=== PATIENT | female | born 1935 | race Caucasian/White ===

== ENCOUNTER 2019-06-10 16:24 | Inpatient (IN) | payer OTHER ==
[~2019-06-10] VITALS: Ht 170.2 cm; Wt 87.7 kg
[~2019-06-10 16:24] MED LIST: ADVAIR 250-501 EACH IH; ALBUTEROL2.5 MG/31 INH; ASA81BEC; ASPIR 8181 MG PO; AZITHROMYCIN 2250 MG; B COMPLEX-VITA1 EACH PO; BINOSTO70 MG PO; BUFFERIN 81 MG81 MG; CALCIUM 600 +1 EAC1 PO; EYE ITCH RELIEF5 ML OP; GLUCOSAMINE-CH900 MG PO; LEVAQUIN 750 M750 MG PO; MELATONIN1 MG; NAPROSYN500 MG PO; NEURONTIN 300300 M1 PO; OMACOR1 G1 PO; PREDNISONE 10 M10 MG PO; PREDNISONE 20 M20 M1 PO; PROAIR HFA8.5 GM IH; PROAIR HFA8.5 GM INH; PROMETHAZINE-C120 ML PO; RESTASIS1 EACH OPHTHALMIC; SYNTHROID100 MCG PO; TESSALON200 MG PO; TRAMADOL 50 MG50 MG PO; ZOCOR40 MG PO
[2019-06-10 16:34] VITALS: BP 176/104
[2019-06-10] MEDS ORDERED: ADVAIR 100-501 EACH INH (16:39)
[2019-06-10 18:58] VITALS: BP 171/105
[2019-06-10 19:18] LABS: ABSOLUTE EOSINOPHILS 0.4 thou/uL (0.0-0.7); ABSOLUTE LYMPHOCYTES 2.4 thou/uL (0.8-5.3); ABSOLUTE MONOCYTES 0.7 thou/uL (0.0-1.2); ABSOLUTE NEUTROPHILS 5.7 thou/uL (1.6-8.1); BASOPHILS 0.4 %; HEMATOCRIT 41.8 % (37.0-47.0); HEMOGLOBIN 13.9 gm/dL (12.0-15.0); LYMPHOCYTES 26.1 %; MCH 27.8 pg (26.0-34.0); MCHC 33.1 g/dL (28.0-37.0); MCV 83.8 fL (80.0-100.0); MONOCYTES 7.4 %; MPV 9.1 fl. (7.2-11.1); NUCLEATED RBCS 0 /100WBC; PLATELET COUNT* 267 thou/uL (150-400); POLYS 62.1 %; RBC 4.99 mil/uL (4.20-5.00); RDW-CV 15.1 % (10.5-14.5); WBC 9.1 thou/uL (4.0-11.0)
[2019-06-10 19:31] LABS: CALCIUM 9.6 mg/dL (8.5-10.1); CREATININE 0.7 mg/dL (0.6-1.3); POTASSIUM 4.4 mmol/L (3.5-5.1)
[2019-06-10 19:44] LABS: ALBUMIN 4.1 g/dL (3.4-5.0); TOTAL PROTEIN 7.1 g/dL (6.4-8.2)
[2019-06-10 21:09] LABS: INFLUENZA A ANTIGEN Negative (Negative); INFLUENZA B ANTIGEN Negative (Negative)
[2019-06-10 21:27] LABS: URINE BILIRUBIN NEGATIVE (Negative); URINE BLOOD NEGATIVE (Negative); URINE CLARITY CLEAR; URINE COLOR YELLOW; URINE GLUCOSE-RANDOM NEGATIVE (Negative); URINE KETONES NEGATIVE (Negative); URINE LEUKOCYTES-REFLEX 1+ (Negative); URINE NITRITE-REFLEX NEGATIVE (Negative); URINE PROTEIN NEGATIVE (Negative); URINE UROBILINOGEN 0.2 E.U./dl (0.2-1.0)
[2019-06-10 21:38] LABS: BACTERIA-REFLEX None Seen /HPF (None Seen); CASTS None Seen /LPF (None Seen); CRYSTALS None Seen /LPF (None Seen); SQUAMOUS 0-3 Few /LPF (0-3); URINE RBC None Seen /HPF (0-2); URINE WBC-REFLEX None Seen /HPF (0-5)
[2019-06-10 22:00] VITALS: BP 134/76
--- NOTE | 2019-06-10 23:30 | NUR ---
RECEIVED REPORT AND ASSUMED CARE OF PT, ASSESSMENT COMPLETED. PT REMAINS BOARDING IN ER. C/O SHOOK. REASSURANCE AND DARK ROOM. TELEMETRY ON SHOWING SR. SEE ADMISSION ASSESSMENT AND HX. WILL CONT TO MONITOR AND ASSIST NEEDED.
[2019-06-11] VITALS: BP 144/82
[2019-06-11 04:00] VITALS: BP 133/68
--- NOTE | 2019-06-11 05:14 | NUR ---
AWAKE MOST OF NIGHT STATING SHE JUST CAN'T SLEEP. WHEN DOZING PT DESATS, O2 APPLIED AT 2L/NC. BP IMPROVED. CONT TO BOARD IN ER. HOURLY ROUNDING OBSERVED.
[2019-06-11 07:52] VITALS: BP 129/73
--- NOTE | 2019-06-11 10:10 | NUR ---
PHYSICIAN PAGED PER PT REQUEST FOR CHANGE IN DIET ORDER OF NPO AT [facility].
[2019-06-11 10:52] VITALS: BP 152/70
--- NOTE | 2019-06-11 11:50 | NUR ---
RN CALLED INTO ROOM R/T PT REQUESTING FOR UPDATE ON P.O.C. PHYSICIAN PAGED OVERHEAD FOR UPDATE ON P.O.C FOR PT.
--- NOTE | 2019-06-11 13:12 | NUR ---
SPOKE WITH DR. REYNOSO VIA PHONE R/T PT NOT WANTING MRI AND WANTING TO LEAVE. DR. REYNOSO OKAY WITH PT LEAVING AGAINST MEDICAL ADVICE. PT INFORMED THAT PHYSICIAN STILL WANTING PT TO COMPLETE MRI AND STAY BUT IS FINE WITH PT LEAVING IF REQUESTED. PT STATES "YOU GUYS ARENT DOING ANYTHING HERE THAT I CAN'T DO AT HOME AND I WANT TO GO HOME". EMOTIONAL SUPPORT PROVIDED. PT GIVEN AMA FORM TO SIGN. PT REFUSING SIGNATURE OF AMA FORM R/T STATING "HE RELEASED ME". I INFORMED PT THAT DR. REYNOSO IS STILL WANTING PT TO COMPLETE MRI AND STAY FOR FURTHER WORK UP BUT HE IS OKAY WITH HER LEAVING IF WANTING TO. 2 RN SIGNATURE COMPLETED AMA FORM.
[2019-06-11 13:23] VITALS: BP 152/70
--- NOTE | 2019-06-12 13:57 | EKG ---
[place] [address] ELECTROCARDIOGRAM REPORT Name: ADAN TAY Room: [address] IN .R.#: [id number] Admission: 06/10/19 Attend Phys: Tan Mcconnell, Discharge: 06/11/19 Date of : 37 Date of Service: 06/10/191932 Report #: [id number] THIS REPORT FOR: cc: Barrett Llanos MD, Khanh MD Holkins,Abdi Naylor MD [facility] ~ THIS REPORT FOR: //name// [facility] ED Test Date: 2019-06-10 Test Time: 19:33:12 Pat Name: ADAN TAY Department: Room: [facility] Gender: F Warehouse Administrative Assistant: MARCOS : 1935 Requested By: Anneliese Rao Order Number: [id number] : Abdi Rubio Measurements Intervals [place] Rate: 71 P: 56 NH: 136 QRS: 9 QRSD: 153 T: 14 QT: 437 QTc: 475 Interpretive Statements Sinus rhythm Right bundle branch block Baseline wander in lead(s) V5 Compared to ECG 01/03/2017 20:25:31 Sinus tachycardia no longer present Possible ischemia no longer present Electronically Signed On 06-11-2019 12:50:31 [employer] by Abdi Rubio [email or web address] <ELECTRONICALLY SIGNED> By: Abdi Rubio MD, [facility] 06/11/19 1250 32 32 Abdi Rubio MD, [facility] /EPI
--- NOTE | 2019-06-12 18:38 | CON ---
[address] [address] CONSULTATION Name: ADAN TAY Room: [address] IN .R.#: [id number] Admission: 06/10/19 Attend Phys: Tan Mcconnell MD Discharge: 06/11/19 Date of : 37 Report #: [id number] THIS REPORT FOR: //name// cc: Barrett Llanos MD, Khanh MD ~ THIS REPORT FOR: //name// CC: Tan Llanos DATE OF SERVICE: 06/11/2019 HISTORY OF PRESENT ILLNESS: This is an 83-year-old female patient who is not very happy. She indicates she is having headache because she has not eaten anything. She is complaining of vertigo, dizziness and headache. She said she had these symptoms in the past also and it is just more severe this time. They started spontaneously without any trauma. She does not know anything, which aggravates or make it better. REVIEW OF SYSTEMS: Positive for bronchitis. She has nausea, vomiting. She is complaining of some chest pain. She has a history of COPD, hysterectomy, bladder surgery, cyst removal from the abdomen. She has cataract removed from both eyes. She has a history of hyperlipidemia, macular degeneration, vertigo, sleep apnea, hypercholesterolemia. This was a relevant 14-point review of system. PAST MEDICAL HISTORY: Positive for COPD. FAMILY HISTORY: Unremarkable. SOCIAL HISTORY: She does have a history of smoking. PHYSICAL EXAMINATION: Indicate the patient is alert, very angry because she has not eaten anything. Her examination was difficult because of the irritations, but she is alert, responsive, able to follow simple and complex command. Cranial nerve examination 2-12 is unremarkable. She has symmetrical strength, sensation, reflexes and tone. There is no meningeal sign. There is no carotid bruit. Cardiac examination was unremarkable. No respiratory difficulty was noticed. She has no edema, cyanosis or jaundice. She has no thyroid mass. There is no carotid bruit. Her blood pressure is 152/70, respiration is 14, pulse is 79, temperature is 98.5. LABORATORY DATA: Indicate a white count of 9.1 and GFR is normal. CT scan of the head was unremarkable. IMPRESSION: I discussed with the patient that we will do [place] [address] CONSULTATION Name: ADAN TAY Room: [address]#: [id number] Admission: 06/10/19 Attend Phys: Tan Mcconnell MD Discharge: 06/11/19 Date of : 37 Report #: [id number] patient for any neurological etiology for her dizziness. It is more likely to be ENT etiology. She understands that. We will also give her thiamine. I talked to Dr. Ortiz about feeding her and they are going to make that arrangement. <ELECTRONICALLY SIGNED> By: Prudencio Cavazos MD 06/12/19 1838 [id number] Cavazos MD /nt
== END 2019-06-11 13:01 | disposition left against medical advice (07) | DRG 866 ==
LOC: M.ERS 16:24 → M.TBA-ER 20:27
PROVIDERS: Nurse Practitioner Family; ADMIT Internal Medicine
DX: B34.9 Viral infection, unspecified (principal); J44.9 Chronic obstructive pulmonary disease, unspecified; E78.5 Hyperlipidemia, unspecified; E86.0 Dehydration; G47.30 Sleep apnea, unspecified; R51 Headache; Z79.82 Long term (current) use of aspirin; Z79.899 Other long term (current) drug therapy; Z90.710 Acquired absence of both cervix and uterus; Z98.42 Cataract extraction status, left eye; Z98.41 Cataract extraction status, right eye; Z79.51 Long term (current) use of inhaled steroids; Z87.891 Personal history of nicotine dependence; Z53.29 Procedure and treatment not carried out because of patient's decision for other reasons